=== PATIENT | female | born 1990 | race Caucasian/White ===

== ENCOUNTER → 2016-05-04 | Outpatient (CLI) | payer OTHER ==
--- NOTE | 2016-05-11 16:38 | PATHOLOGY ---
GYNECOLOGIC CYTOLOGY REPORT * * * * * * * INTERPRETATION: NEGATIVE FOR INTRAEPITHELIAL LESION AND MALIGNANCY. CELLULAR CHANGES ASSOCIATED WITH REPAIR ARE PRESENT. Fungal organisms morphologically consistent with Jennifer species are present. SPECIMEN ADEQUACY: Satisfactory for evaluation. No endocervical component is identified. COMMENT(S): This liquid based pap test was screened with the use of an image guided system. RESULTS OF SPECIAL TESTING Test: HPV APTIMA Order Date: 05/05/2016 HPV, OSORIO Screen[[id number]]: Negative (Reference Range = Negative) This test detects fourteen high-risk HPV types (16/18/31/33/35/39/45/51/52/56/58/59/66/68) without differentiation. RESULTED BY: Saige Sanders MT(ASCP) DATE/TIME: 05/09/2016 12:32 RESULTS OF SPECIAL TESTING Test: CT/NG/TV Order Date: 05/06/2016 Chlamydia trachomatis, OSORIO[[id number]]: Negative Neisseria gonorrhoeae, OSORIO[[id number]]: Negative Trichomonas vaginalis, OSORIO[[id number]]: Negative (Reference Range = Negative) CTNG TESTING WAS PERFORMED: A positive result constitutes a reportable case according to [place] State Statute RSMo 192.006 and 192.020 and [place] State Statute K.A.R. 28-1-2 and K.S.A. 65-118. Accordingly, we are asking you as the attending physician to report this case and we shall do likewise in compliance with state statutes. RESULTED BY: Parul Lockhart DATE/TIME: 05/10/2016 15:31 * * * * * * * EXPANDER: STEPHANIE Colon([facility]) PATHOLOGIST: Andrzej Aiken M.D. PAP REPORT ELECTRONICALLY SIGNED BY: Andrzej Aiken M.D. DATE/TIME: 05/11/2016 16:36 SPECIMEN: IGP,CtNgTv ,rfx Apt HPV all path ([id number]) # SLIDES: 1 CLINICAL HISTORY: -LMP/MENSTRUAL: Information not provided -PREVIOUS PAP: Information not provided -BIOPSY: Information not provided -CONTRACEPTIVE: Information not provided -OTHER: Information not provided -ICD-CM: R87.5 Z01.419 INITIAL CPT CODE(S): 39255 971489; 16966 A; 92887 CTNGNTV; 05578, 33646, 29782 Professional services performed by [facility], [address] [place] [address]. Technical services performed by [facility], [address] [place] [address], [address], [place] [address]. The Pap smear is a screening test designed to aid in the detection of premalignant and malignant conditions of the uterine cervix. It is not a diagnostic procedure and should not be used as the sole means of detecting cervical cancer. Both false-positive and false-negative reports do occur. PATIENT: DEANDRE COE /AGE: 709/13/1990 (Age: 25) PATIENT #: [id number] ALT CASE #: SPECIMEN COLLECTION DATE: 05/04/2016 SPECIMEN RECEIVED DATE: 05/05/[address], [address] - [place] [address] - PHONE: [phone] * * * END OF REPORT * * *
== END | disposition home or self-care (01) ==
LOC: SPEC 13:33
PROVIDERS: ATTEND Nurse Practitioner Women's Health
DX: Z01.419 Encounter for gynecological examination (general) (routine) without abnormal findings (principal)
CPT/HCPCS: 88175

== ENCOUNTER → 2017-08-24 | Outpatient (CLI) | payer OTHER | END | disposition home or self-care (01) | LOC: KCIC US 12:18 | DX: Z34.82 Encounter for supervision of other normal pregnancy, second trimester (principal); Z3A.20 20 weeks gestation of pregnancy | CPT/HCPCS: 76805 ==

== ENCOUNTER → 2017-09-25 | Outpatient (CLI) | payer OTHER | END | disposition home or self-care (01) | LOC: KCIC US 08:45 | DX: O26.842 Uterine size-date discrepancy, second trimester (principal); Z3A.26 26 weeks gestation of pregnancy | CPT/HCPCS: 76805 ==

== ENCOUNTER 2018-01-08 19:22 | Inpatient (IN) | payer OTHER ==
[~2018-01-08] VITALS: Ht 167.6 cm; Wt 73.7 kg
[2018-01-08] MEDS ORDERED: OXYTOCIN 30 UNIT/500 ML PREMIX 500 ML IV PRN (19:45)
[2018-01-08] MEDS ORDERED: fentaNYL PF VIAL 100 MCG/2 ML VIAL IV PRN ×2 (19:45)
[2018-01-08] MEDS ORDERED: CITRIC ACID/SODIUM CITRATE 30 ML SOLUTION. PO PRN (19:45)
[2018-01-08] MEDS ORDERED: TERBUTALINE 1 MG/ML VIAL. SQ PRN (19:45)
[2018-01-08] MEDS ORDERED: ONDANSETRON PF 4 MG/2 ML VIAL. IV PRN (19:45)
[2018-01-08] MEDS ORDERED: 0.9 % SODIUM CHLORIDE 10 ML DISP.SYRIN. IV PRN (19:45)
[2018-01-08] MEDS ORDERED: ACETAMINOPHEN 325 MG TABLET. PO PRN (19:45)
[2018-01-08] MEDS ORDERED: diphenhydrAMINE HCL 25 MG CAPSULE PO PRN (19:45)
[2018-01-08] MEDS ORDERED: IBUPROFEN 400 MG TABLET. PO PRN (19:45)
[2018-01-08] MEDS ORDERED: LIDOCAINE 1% PF 30 ML VIAL. INJ PRN (19:45)
[2018-01-08 19:49] VITALS: BP 116/70
[2018-01-08] MEDS ORDERED: DINOPROSTONE 10 MG SUPP.VAG VG ONE (20:00)
[2018-01-08 20:12] LABS: BILIRUBIN,URINE NEGATIVE (NEG); CLARITY,URINE CLEAR; COLOR,URINE YELLOW; NITRITE,URINE NEGATIVE (NEG); PH,URINE 6.5; PROTEIN,URINE NEGATIVE (NEG-TRACE)
[2018-01-08 20:23] LABS: BACTERIA,URINE FEW /HPF (0-FEW); SQUAMOUS EPITHELIAL CELL,UR MOD /LPF
[2018-01-08] MEDS: IV RINGERS,LACTATED 1000ML 1,000 ML IV SCH (20:35)
[2018-01-08 21:01] LABS: BASO % 1 % (0-3); EOS % 1 % (0-3); HEMATOCRIT 32.6 % (36.0-47.0); HEMOGLOBIN 11.7 g/dL (12.0-15.5); LYMPH # 1.4 x10^3/uL (1.0-4.8); LYMPH % 19 % (24-48); MEAN CORPUSCULAR HEMOGLOBIN 34 pg (25-35); MEAN CORPUSCULAR HGB CONC 36 g/dL (31-37); MEAN CORPUSCULAR VOLUME 94 fL (79-100); MONO # 0.6 x10^3/uL (0.0-1.1); MONO % 8 % (0-9); NEUT # 5.4 x10^3uL (1.8-7.7); NEUT % 72 % (31-73); PLATELET COUNT 231 x10^3/uL (140-400); RED BLOOD COUNT 3.45 x10^6/uL (3.50-5.40); RED CELL DISTRIBUTION WIDTH 13.5 % (11.5-14.5); WHITE BLOOD COUNT 7.6 x10^3/uL (4.0-11.0)
[2018-01-09] MEDS ORDERED: OXYTOCIN 30 UNIT/500 ML PREMIX 500 ML IV PRN ×2 (06:00→20:30)
[2018-01-09] MEDS ORDERED: ROPIVacaine 0.2% IN 0.9%NACL PF 40 MG/20 ML DISP.SYRIN. ONE (11:28)
[2018-01-09] MEDS ORDERED: L&D EPIDURAL SYRINGE 50 ML ONE ×3 (11:28→17:56)
[2018-01-09] MEDS ORDERED: LIDOCAINE 1% PF 2 ML VIAL. ONE ×3 (11:36→12:00)
[2018-01-09] MEDS: IV RINGERS,LACTATED 1000ML 1,000 ML IV SCH ×3 (11:39→19:41)
[2018-01-09] MEDS ORDERED: IV RINGERS,LACTATED 1000ML 1,000 ML IV SCH (11:55)
[2018-01-09] MEDS ORDERED: ROPIVacaine 0.2% IN 0.9%NACL PF 40 MG/20 ML DISP.SYRIN. EPID PRN (12:00)
[2018-01-09] MEDS ORDERED: ePHEDrine PF IN SALINE 50 MG/5 ML DISP.SYRIN IV PRN (12:00)
[2018-01-09] MEDS ORDERED: fentaNYL PF VIAL 100 MCG/2 ML VIAL EPI PRN (12:00)
[2018-01-09] MEDS ORDERED: ONDANSETRON PF 4 MG/2 ML VIAL. IV PRN (12:00)
[2018-01-09] MEDS ORDERED: NALOXONE 0.4 MG/ML VIAL. IV PRN (12:00)
--- NOTE | 2018-01-09 12:24 | PDOC1 ---
OB - History Hx of Present Care: Good Care Ultrasounds: Normal mid trimester US Obstetrical Complications: Other (oligohydramnios) Medical Complications: None Past Family/Social History * Past Medical, Surgical, Family and Obstetric Histories reviewed from chart. Rubella: Immune RPR/VDRL: Negative GBS Status: Negative HBsAG: Negative OB - Chief Complaint & HPI Date of Admission: Date of Admission: Jan 08, 2018 at 19:22 Chief Complaint/History : 1 Para: 0 EGA: 40 Reason for admission: induction of labor (oligohydramnios) Indication for induction: other (oligohydramnios) Admission Nurse Assessment Rev: Yes OB - Admission Exam Physical Exam Vitals: VS - Last 72 Hours, by Label Date Time Temp Pulse Resp B/P (MAP) Pulse Ox O2 Delivery O2 Flow Rate FiO2 01/08/18 19:49 98.1 83 18 116/70 (85) Room Air 98.1 HEENT: Normal Heart: Regular Rate Lungs: Crackles Abdomen: Gravid, Non tender, Soft Extremities: Edema Reflexes: Normal Cervical Dilatation: 2cm Effacement: 50% Station: -3 Membranes: Intact Heart Rate: Normal Accelerations: Accelerations Present Decelerations: No decelerations Contractions on Admission: None Text A: 40 wks IUP Oligohydramnios P: Admit for IOl cervidil, then pitocin. ALTAGRACIA FERRER Jr, MD Jan 09, 2018 12:24
[2018-01-09] MEDS ORDERED: L&D EPIDURAL 50 ML SYRINGE. ONE (14:00)
[2018-01-09] MEDS ORDERED: L&D EPIDURAL CASSETTE 100 ML EP PRN (15:00)
--- NOTE | 2018-01-09 20:17 | PDOC ---
VAGINAL DELIVERY DATE DATE: 01/09/18 TIME: 20:15 : 1 Para: 1 EGA: 40 VAGINAL DELIVERY: VTX VACCUM ASSISTED: Yes NUMBER OF PULLS 3 NUMBER OF POP OFFS none MAXIMUM PRESSURE 600 mmgh PLACENTA: Spontaneous 7/9 SEX: Male WEIGHT Weight [ 3920 gm] Nuchal Cord: Yes, Times 1 Amniotic Fluid: Clear PAIN: Epidural EPISIOTOMY: No EXTENSION: Yes (2nd degree mediolateral laceration) REPAIRED WITH 2-0 vicryl EBL 400 ml COMPLICATIONS none CONDITION stable Signs of Intrauterine Infectio: None Shoulder Dystocia: No ALTAGRACIA FERRER Jr, MD Jan 09, 2018 20:17
[2018-01-09] MEDS ORDERED: BENZOCAINE 20% TOPICAL AEROSOL SPRAY 57GM CAN. TP PRN (20:30)
[2018-01-09] MEDS ORDERED: SIMETHICONE 80 MG TAB.CHEW PO PRN (20:30)
[2018-01-09] MEDS ORDERED: MAG HYDROX/ALUMINUM HYD/SIMETH 30 ML ORAL.SUSP PO PRN (20:30)
[2018-01-09] MEDS ORDERED: MAGNESIUM HYDROXIDE 2,400 MG/30 ML ORAL.SUSP. PO PRN (20:30)
[2018-01-09] MEDS ORDERED: 0.9 % SODIUM CHLORIDE 10 ML DISP.SYRIN. IV PRN (20:30)
[2018-01-09] MEDS ORDERED: diphenhydrAMINE HCL 25 MG CAPSULE PO PRN (20:30)
[2018-01-09] MEDS ORDERED: HYDROCORTISONE 1% TOPICAL OINTMENT 30GM TUBE. TP PRN (20:30)
[2018-01-09] MEDS ORDERED: ZOLPIDEM 5 MG TABLET. PO PRN (20:30)
[2018-01-09] MEDS ORDERED: MMR per PROTOCOL. MC PRN (20:30)
[2018-01-09] MEDS ORDERED: ACETAMINOPHEN 325 MG TABLET. PO PRN (20:30)
[2018-01-09] MEDS: IBUPROFEN 400 MG TABLET. PO PRN (22:42)
[2018-01-09 22:50] VITALS: BP 106/67
[2018-01-09] MEDS: PHENYLEPH/MINERAL OIL/PETROLAT RECTAL OINTMENT 28GM TUBE. RC PRN (23:59)
[2018-01-10] MEDS: IV RINGERS,LACTATED 1000ML 1,000 ML IV SCH ×3 (03:41→19:41)
[2018-01-10 04:44] LABS: BASO % 0 % (0-3); EOS % 0 % (0-3); HEMATOCRIT 29.3 % (36.0-47.0); HEMOGLOBIN 10.1 g/dL (12.0-15.5); LYMPH # 1.3 x10^3/uL (1.0-4.8); LYMPH % 10 % (24-48); MEAN CORPUSCULAR HEMOGLOBIN 33 pg (25-35); MEAN CORPUSCULAR HGB CONC 35 g/dL (31-37); MEAN CORPUSCULAR VOLUME 95 fL (79-100); MONO # 1.2 x10^3/uL (0.0-1.1); MONO % 9 % (0-9); NEUT # 10.8 x10^3uL (1.8-7.7); NEUT % 81 % (31-73); PLATELET COUNT 189 x10^3/uL (140-400); RED CELL DISTRIBUTION WIDTH 13.9 % (11.5-14.5); WHITE BLOOD COUNT 13.4 x10^3/uL (4.0-11.0)
[2018-01-10 05:04] VITALS: BP 94/57
[2018-01-10] MEDS: IBUPROFEN 400 MG TABLET. PO PRN ×2 (07:40→15:40)
--- NOTE | 2018-01-10 08:27 | PDOC ---
OB Progress Note Date of Service 01/10/18 Time of Evaluation 0825 Notes Pt. feeling well. No complaints. Lab Laboratory Tests Test 01/08/18 19:30 01/08/18 20:20 01/10/18 04:20 Urine Collection Type Unknown Urine Color Yellow Urine Clarity Clear Urine pH 6.5 Urine Specific [place] 1.020 Urine Protein Negative mg/dL (NEG-TRACE) Urine Glucose (UA) Negative mg/dL (NEG) Urine Ketones (Stick) Negative mg/dL (NEG) Urine Blood Negative (NEG) Urine Nitrite Negative (NEG) Urine Bilirubin Negative (NEG) Urine Urobilinogen Dipstick 1.0 mg/dL (0.2 mg/dL) Urine Leukocyte Esterase Negative (NEG) Urine RBC 1-2 /HPF (0-2) Urine WBC 1-4 /HPF (0-4) Urine Squamous Epithelial Cells Mod /LPF Urine Bacteria Few /HPF (0-FEW) Urine Mucus Slight /LPF White Blood Count 7.6 x10^3/uL (4.0-11.0) 13.4 x10^3/uL (4.0-11.0) Red Blood Count 3.45 x10^6/uL (3.50-5.40) 3.10 x10^6/uL (3.50-5.40) Hemoglobin 11.7 g/dL (12.0-15.5) 10.1 g/dL (12.0-15.5) Hematocrit 32.6 % (36.0-47.0) 29.3 % (36.0-47.0) Mean Corpuscular Volume 94 fL (79-100) 95 fL (79-100) Mean Corpuscular Hemoglobin 34 pg (25-35) 33 pg (25-35) Mean Corpuscular Hemoglobin Concent 36 g/dL (31-37) 35 g/dL (31-37) Red Cell Distribution Width 13.5 % (11.5-14.5) 13.9 % (11.5-14.5) Platelet Count 231 x10^3/uL (140-400) 189 x10^3/uL (140-400) Neutrophils (%) (Auto) 72 % (31-73) 81 % (31-73) Lymphocytes (%) (Auto) 19 % (24-48) 10 % (24-48) Monocytes (%) (Auto) 8 % (0-9) 9 % (0-9) Eosinophils (%) (Auto) 1 % (0-3) 0 % (0-3) Basophils (%) (Auto) 1 % (0-3) 0 % (0-3) Neutrophils # (Auto) 5.4 x10^3uL (1.8-7.7) 10.8 x10^3uL (1.8-7.7) Lymphocytes # (Auto) 1.4 x10^3/uL (1.0-4.8) 1.3 x10^3/uL (1.0-4.8) Monocytes # (Auto) 0.6 x10^3/uL (0.0-1.1) 1.2 x10^3/uL (0.0-1.1) Eosinophils # (Auto) 0.0 x10^3/uL (0.0-0.7) 0.0 x10^3/uL (0.0-0.7) Basophils # (Auto) 0.0 x10^3/uL (0.0-0.2) 0.0 x10^3/uL (0.0-0.2) Treponema pallidum Antibody Nonreactive (Nonreactive) Hepatitis B Surface Antigen Nonreactive (Nonreactive) Laboratory Tests Test 01/10/18 04:20 White Blood Count 13.4 x10^3/uL (4.0-11.0) Red Blood Count 3.10 x10^6/uL (3.50-5.40) Hemoglobin 10.1 g/dL (12.0-15.5) Hematocrit 29.3 % (36.0-47.0) Mean Corpuscular Volume 95 fL (79-100) Mean Corpuscular Hemoglobin 33 pg (25-35) Mean Corpuscular Hemoglobin Concent 35 g/dL (31-37) Red Cell Distribution Width 13.9 % (11.5-14.5) Platelet Count 189 x10^3/uL (140-400) Neutrophils (%) (Auto) 81 % (31-73) Lymphocytes (%) (Auto) 10 % (24-48) Monocytes (%) (Auto) 9 % (0-9) Eosinophils (%) (Auto) 0 % (0-3) Basophils (%) (Auto) 0 % (0-3) Neutrophils # (Auto) 10.8 x10^3uL (1.8-7.7) Lymphocytes # (Auto) 1.3 x10^3/uL (1.0-4.8) Monocytes # (Auto) 1.2 x10^3/uL (0.0-1.1) Eosinophils # (Auto) 0.0 x10^3/uL (0.0-0.7) Basophils # (Auto) 0.0 x10^3/uL (0.0-0.2) Medications Current Medications Sodium Chloride (Normal Saline Flush) 3 ml QSHIFT PRN IV AFTER MEDS AND BLOOD DRAWS Last administered on 01/08/18at 20:34; Start 01/08/18 at 19:45 Ringer's Solution 1,000 ml @ 125 mls/hr Q8H IV Last administered on 01/09/18at 11:39; Start 01/08/18 at 19:41 Fentanyl Citrate (Fentanyl 2ml Vial) 50 mcg PRN Q30MIN PRN IV Mild to moderate pain; Start 01/08/18 at 19:45 Fentanyl Citrate (Fentanyl 2ml Vial) 100 mcg PRN Q30MIN PRN IV Severe pain; Start 01/08/18 at 19:45 Acetaminophen (Tylenol) 650 mg PRN Q6HRS PRN PO MILD PAIN / TEMP; Start at 19:45 Ondansetron HCl (Zofran) 4 mg PRN Q4HRS PRN IV NAUSEA/VOMITING; Start 01/08/18 at 19:45 Citric Acid/ Sodium Citrate (Bicitra) 30 ml 1X PRN PRN PO DYSPEPSIA; Start 01/08/18 at 19:45; Stop 01/09/18 at 19:44; Status DC Terbutaline Sulfate (Brethine) 0.25 mg 1X PRN PRN SQ SEE COMMENTS; Start at 19:45; Stop 01/09/18 at 19:44; Status DC Lidocaine HCl (Xylocaine 1% Pf 30ml Vial) 30 ml 1X PRN PRN INJ SEE COMMENTS; Start 01/08/18 at 19:45; Stop 01/10/18 at 19:44 Oxytocin/Sodium Chloride 500 ml @ 0 mls/hr CONT PRN IV SEE I/O RECORD Last administered on 01/09/18at 06:17; Start 01/09/18 at 06:00 Oxytocin/Sodium Chloride 500 ml @ 0 mls/hr CONT PRN PRN IV Post delivery bleeding; Start 01/08/18 at 19:45 Ibuprofen (Motrin) 800 mg PRN Q6HRS PRN PO MODERATE POST DELIVERY PAIN; Start 01/08/18 at 19:45; Status Cancel Dinoprostone (Cervidil) 10 mg 1X ONCE VG Last administered on 01/08/18at 20:33 ; Start 01/08/18 at 20:00; Stop 01/08/18 at 20:01; Status DC Diphenhydramine HCl (Benadryl) 25 mg PRN QHS PRN PO INSOMNIA; Start 01/08/18 at 19:45 Ropivacaine/ Sodium Chloride (ROPIVacaine 0.2% - 0.9%NACL PF) 40 mg STK-MED ONCE .ROUTE ; Start 01/09/18 at 11:28; Stop 01/09/18 at 11:29; Status DC Ropivacaine/ Fentanyl/NS 50 ml @ As Directed STK-MED ONCE .ROUTE ; Start at 11:28; Stop 01/09/18 at 11:29; Status DC Lidocaine HCl (Xylocaine-Mpf 1% 2ml Vial) 2 ml STK-MED ONCE .ROUTE ; Start 01/09 at 11:36; Stop 01/09/18 at 11:37; Status DC Lidocaine HCl (Xylocaine-Mpf 1% 2ml Vial) 2 ml STK-MED ONCE .ROUTE ; Start 01/09 at 11:36; Stop 01/09/18 at 11:37; Status DC Ringer's Solution 1,000 ml @ 1,000 mls/hr Q1H IV ; Start 01/09/18 at 11:55; Stop 01/09/18 at 12:54; Status DC Ephedrine Sulfate (ePHEDrine PF IN SALINE SYRINGE) 10 mg PRN Q2MIN PRN IV IF SBP<90; Start 01/09/18 at 12:00 Naloxone HCl (Narcan) 0.4 mg PRN Q1MIN PRN IV SEE COMMENTS; Start 01/09/18 at 12:00 Fentanyl Citrate (Fentanyl 2ml Vial) 100 mcg PRN 1X PRN EPI FOR ANESTHESIA; Start 01/09/18 at 12:00; Stop 01/10/18 at 11:59 Ondansetron HCl (Zofran) 4 mg PRN Q6HRS PRN IV NAUSEA/VOMITING; Start 01/09/18 at 12:00; Status UNV Ropivacaine/ Sodium Chloride (ROPIVacaine 0.2% - 0.9%NACL PF) 40 mg PRN 1X PRN EPID SEE COMMENTS Last administered on 01/09/18at 12:00; Start 01/09/18 at 12:00 ; Stop 01/09/18 at 12:02; Status DC Ropivacaine/ Fentanyl/NS 100 ml @ 0 mls/hr CONT PRN EP PAIN; Start 01/09/18 at 15:00 Ropivacaine/ Fentanyl/NS 50 ml @ As Directed STK-MED ONCE .ROUTE ; Start at 15:12; Stop 01/09/18 at 15:13; Status DC Ropivacaine/ Fentanyl/NS 50 ml @ As Directed STK-MED ONCE .ROUTE ; Start at 17:56; Stop 01/09/18 at 17:57; Status DC Sodium Chloride (Normal Saline Flush) 10 ml QSHIFT PRN IV AFTER MEDS AND BLOOD DRAWS; Start 01/09/18 at 20:30 Oxytocin/Sodium Chloride 500 ml @ 62.5 mls/hr CONT PRN IV SEE I/O RECORD; Start 01/09/18 at 20:30; Stop 01/10/18 at 04:30; Status DC Acetaminophen (Tylenol) 650 mg PRN Q6HRS PRN PO MILD PAIN / TEMP; Start at 20:30; Status UNV Ibuprofen (Motrin) 800 mg PRN Q8HRS PRN PO INFLAMMATION/PAIN PREVENTION Last administered on 01/10/18at 07:40; Start 01/09/18 at 20:30 Docusate Sodium (Colace) 100 mg PRN BID PRN PO CONSTIPATION; Start 01/09/18 at 20:30 Magnesium Hydroxide (Milk Of Magnesia) 2,400 mg PRN DAILY PRN PO CONSTIPATION 2nd Choice; Start 01/09/18 at 20:30 Al Hydroxide/Mg Hydroxide (Mylanta Plus Xs) 30 ml PRN Q4HRS PRN PO HEARTBURN / GAS; Start 01/09/18 at 20:30 Simethicone (Gas-X) 80 mg PRN AFTMEALHC PRN PO GAS / BLOATING; Start 01/09/18 at 20:30 Diphenhydramine HCl (Benadryl) 25 mg PRN Q6HRS PRN PO ITCHING; Start 01/09/18 at 20:30 Benzocaine (Americaine) 1 spray PRN QID PRN TP TOPICAL PAIN Last administered on 01/09/18at 22:41; Start 01/09/18 at 20:30 Phenyleph/Shark Oil/Min Oil/Petrol (Preparation H) 1 martha PRN QID PRN RC RECTAL PAIN Last administered on 01/09/18at 23:59; Start 01/09/18 at 20:30 Hydrocortisone (Cortaid) 1 martha PRN QID PRN TP PERINEAL PAIN; Start 01/09/18 at 20:30 Ferrous Sulfate (Feosol) 325 mg BIDWMEALS PO ; Start 01/10/18 at 08:00 Zolpidem Tartrate (Ambien) 5 mg PRN QHS PRN PO INSOMNIA, MAY REPEAT X1; Start 01/09/18 at 20:30 Info (Do NOT chart on this placeholder) 1 ea 1X PRN PRN MC SEE COMMENTS; Start 01/09/18 at 20:30; Stop 01/10/18 at 00:46; Status DC Info (Do NOT chart on this placeholder) 1 ea 1X PRN PRN MC SEE COMMENTS; Start 01/09/18 at 20:30 Oxycodone/ Acetaminophen (Percocet 5/325) 2 tab PRN Q4HRS PRN PO MODERATE PAIN , SEVERE PAIN; Start 01/09/18 at 20:30 Diphtheria/ Tetanus/Acell Pertussis (Boostrix) 0.5 ml ONCE ONCE VAX IM ; Start 01/10/18 at 09:00; Stop 01/10/18 at 09:01 Exam Abd: soft, non tender, fundus firm Assessment PPD#1 s/p Plan of Care: Continue current Tx, Mgmt ALTAGRACIA FERRER Jr, MD Jan 10, 2018 08:27
[2018-01-10] MEDS: DOCUSATE SODIUM 100 MG CAPSULE. PO PRN ×2 (08:36→20:09)
[2018-01-10] MEDS: FERROUS SULFATE 325 MG TABLET. PO SCH ×2 (08:36→20:09)
[2018-01-10] MEDS ORDERED: DIPHTH,PERTUSS(ACELL),TET TOX 0.5 ML DISP.SYRIN. VAX IM ONE (09:00)
[2018-01-10 10:00] VITALS: BP 104/66
[2018-01-10 13:30] VITALS: BP 116/79
[2018-01-10] MEDS: oxyCODONE/APAP 5/325 1 TAB TABLET PO PRN ×2 (14:26→20:10)
[2018-01-10 18:10] VITALS: BP 107/69
[2018-01-10 22:18] VITALS: BP 106/69
[2018-01-11] MEDS: IV RINGERS,LACTATED 1000ML 1,000 ML IV SCH ×2 (03:41→07:30)
[2018-01-11 05:44] VITALS: BP 116/85
[2018-01-11] MEDS: IBUPROFEN 400 MG TABLET. PO PRN (08:32)
[2018-01-11] MEDS: PHENYLEPH/MINERAL OIL/PETROLAT RECTAL OINTMENT 28GM TUBE. RC PRN (08:33)
[2018-01-11] MEDS: FERROUS SULFATE 325 MG TABLET. PO SCH (08:33)
--- NOTE | 2018-01-11 10:45 | PDOC3 ---
OB DISCHARGE SUMMARY DATE OF ADMISSION: 01/09/18 DATE OF DISCHARGE: 01/11/18 REASON FOR ADMISSION: Induction of labor PROCEDURES: Ultrasound INTRAPARTUM PROCEDURES: Spontanous Vag Deliv, Perineal Laceration PROCEDURES: None OPERATIONS: None DISCHARGE DIAGNOSIS: Term Delivered DISCHARGE INFORMATION: Activity, Diet HOSPITAL COURSE Unremarkable CONDITION AT DISCHARGE Stable ANA LAURA PADRON MD Jan 11, 2018 10:45
[2018-01-11] MEDS ORDERED: HYDR-971 PO (10:48)
[2018-01-11] MEDS ORDERED: NAPR-514 PO (10:48)
[2018-01-11] MEDS ORDERED: HYDR30CR61 TP (10:49)
[2018-01-11] MEDS ORDERED: HYDR25SU18 RC (10:49)
[2018-01-11 12:00] VITALS: BP 113/76
== END 2018-01-11 12:30 | disposition home or self-care (01) | DRG 806 ==
LOC: 3 SO LND 19:22
PROVIDERS: ADMIT Obstetrics & Gynecology; ATTEND Obstetrics & Gynecology
PROC: 10D07Z6 Extraction of Products of Conception, Vacuum, Via Natural or Artificial Opening (ICD-10-PCS; principal; 2018-01-08)
PROC: 0KQM0ZZ Repair Perineum Muscle, Open Approach (ICD-10-PCS; 2018-01-08)
PROC: 3E0R3BZ Introduction of Anesthetic Agent into Spinal Canal, Percutaneous Approach (ICD-10-PCS; 2018-01-08)
PROC: 00HU33Z Insertion of Infusion Device into Spinal Canal, Percutaneous Approach (ICD-10-PCS; 2018-01-08)
PROC: 3E0P7VZ Introduction of Hormone into Female Reproductive, Via Natural or Artificial Opening (ICD-10-PCS; 2018-01-08)
DX: O69.81X0 Labor and delivery complicated by cord around neck, without compression, not applicable or unspecified (principal); O41.03X0 Oligohydramnios, third trimester, not applicable or unspecified; Z37.0 Single live birth; Z3A.40 40 weeks gestation of pregnancy; O70.1 Second degree perineal laceration during delivery
CPT/HCPCS: 36415; 81001; 85025; 86592; 86850; 86900; 86901; 87340; 90715; J2590; J2795; J7120

== ENCOUNTER 2018-08-14 07:30 | Day surgery (SDC) | payer OTHER ==
[~2018-08-14] VITALS: Ht 167.6 cm; Wt 56.6 kg
--- NOTE | 2018-08-14 06:29 | HP ---
ADMIT DATE: HISTORY OF PRESENT ILLNESS: The patient is doing relatively well and had a child 6 months old and during the and childbirth, had hemorrhoids. Now, she had hemorrhoid posteriorly that gives her difficulty, is irritating and is very distressful to her and she wishes to have this removed. PAST MEDICAL HISTORY: Shows normal childhood diseases. MEDICATIONS: She has no medicine that she is taking anything for. She does take some Zoloft for depression at times. SOCIAL HISTORY: Otherwise, she drinks only socially, not enough to get inebriated. Does not smoke or use illicit drugs. ALLERGIES: She has no allergies. FAMILY HISTORY: Noncontributory. REVIEW OF SYSTEMS: All negative except for the anal pain associated with the external hemorrhoid. PHYSICAL EXAMINATION: GENERAL: Shows an alert female in no acute distress. HEAD, EARS, EYES, NOSE AND THROAT: Grossly normal. CHEST: Clear bilaterally to auscultation. HEART: Rate was 68 beats per minute and was regular. No murmurs are noted. There were no thrills, heaves or friction rub. BREASTS: Not examined. EXTREMITIES: Grossly normal. RECTAL: Examination of the anus shows a posterior mass, which was minimally tender, not inflamed and there was no evidence of thrombosis at this point. IMPRESSION: External hemorrhoid. NIKKI KELLY MD DR: HUMA/nts JOB#: [id number] / [id number]
[~2018-08-14 07:30] MED LIST: HYDR-3164 PO; HYDR25SU18 RC; HYDR30CR61 TP; HYDROmorphone 2 MG/ML VIAL IV PRN; IV RINGERS,LACTATED 1000ML 1,000 ML IV SCH; MORPHINE SULFATE 2 MG/ML VIAL. IV PRN; NAPR-514 PO; ONDANSETRON PF 4 MG/2 ML VIAL. IV PRN; PREN1TAB58 PO; PROCHLORPERAZINE 10 MG/2 ML VIAL. IV PRN; SERT25TA PO; fentaNYL PF VIAL 100 MCG/2 ML VIAL IV PRN
[2018-08-14] MEDS ORDERED: BUPIVAC MPF-EPI 0.5%-1:200000 30 ML VIAL. ONE (07:50)
[2018-08-14] MEDS ORDERED: GELATIN SPONGE SIZE 4 SPONGE. ONE (07:50)
[2018-08-14 08:07] LABS: BASO # 0.1 x10^3/uL (0.0-0.2); BASO % 1 % (0-3); EOS # 0.2 x10^3/uL (0.0-0.7); EOS % 4 % (0-3); HEMATOCRIT 39.6 % (36.0-47.0); HEMOGLOBIN 13.3 g/dL (12.0-15.5); LYMPH # 1.8 x10^3/uL (1.0-4.8); LYMPH % 33 % (24-48); MEAN CORPUSCULAR HEMOGLOBIN 32 pg (25-35); MEAN CORPUSCULAR HGB CONC 34 g/dL (31-37); MEAN CORPUSCULAR VOLUME 95 fL (79-100); MONO # 0.6 x10^3/uL (0.0-1.1); MONO % 11 % (0-9); NEUT # 2.9 x10^3uL (1.8-7.7); NEUT % 52 % (31-73); PLATELET COUNT 278 x10^3/uL (140-400); RED BLOOD COUNT 4.18 x10^6/uL (3.50-5.40); RED CELL DISTRIBUTION WIDTH 14.1 % (11.5-14.5); WHITE BLOOD COUNT 5.5 x10^3/uL (4.0-11.0)
[2018-08-14 08:14] LABS: U PREG PATIENT NEGATIVE (NEG)
[2018-08-14 08:15] LABS: PROTHROMBIN TIME PATIENT 13.4 SEC (11.7-14.0)
[2018-08-14 08:20] LABS: CALCIUM 9.1 mg/dL (8.5-10.1); CREATININE 0.6 mg/dL (0.6-1.0); GFR 118.2; POTASSIUM 4.1 mmol/L (3.5-5.1)
[2018-08-14 08:28] LABS: ALBUMIN/GLOBULIN RATIO 1.3 (1.0-1.7); TOTAL BILIRUBIN 0.3 mg/dL (0.2-1.0); TOTAL PROTEIN 7.2 g/dL (6.4-8.2)
[2018-08-14] MEDS ORDERED: fentaNYL PF VIAL 100 MCG/2 ML VIAL ONE (08:53)
[2018-08-14] MEDS ORDERED: LIDOCAINE 2% PF 5 ML VIAL. ONE (08:54)
[2018-08-14] MEDS ORDERED: PROPOFOL 20 ML IV ONE (08:54)
[2018-08-14] MEDS ORDERED: DEXAMETHASONE SOD PHOS 4 MG/ML VIAL ONE ×2 (08:54)
[2018-08-14] MEDS ORDERED: KETOROLAC 30 MG/ML INJ FOR OR. INJ ONE (08:54)
[2018-08-14] MEDS ORDERED: SEVOFLURANE 31 TO 60 MINUTES. IH ONE (08:54)
[2018-08-14] MEDS ORDERED: ONDANSETRON PF 4 MG/2 ML VIAL. ONE (08:54)
[2018-08-14] MEDS ORDERED: MIDAZOLAM HCL/PF 2 MG/2 ML VIAL. ONE (08:55)
--- NOTE | 2018-08-14 09:18 | PDOC ---
SURGICAL PROGRESS NOTE Subjective nO CHANGE IN DICTATED h&p. Vital Signs Vital Signs Date Time Temp Pulse Resp B/P (MAP) Pulse Ox O2 Delivery O2 Flow Rate FiO2 08/14/18 07:54 97.2 72 20 113/73 97 97.2 Labs Laboratory Tests Test 08/14/18 07:40 08/14/18 07:58 Urine Test Negative (NEG) White Blood Count 5.5 x10^3/uL (4.0-11.0) Red Blood Count 4.18 x10^6/uL (3.50-5.40) Hemoglobin 13.3 g/dL (12.0-15.5) Hematocrit 39.6 % (36.0-47.0) Mean Corpuscular Volume 95 fL (79-100) Mean Corpuscular Hemoglobin 32 pg (25-35) Mean Corpuscular Hemoglobin Concent 34 g/dL (31-37) Red Cell Distribution Width 14.1 % (11.5-14.5) Platelet Count 278 x10^3/uL (140-400) Neutrophils (%) (Auto) 52 % (31-73) Lymphocytes (%) (Auto) 33 % (24-48) Monocytes (%) (Auto) 11 % (0-9) Eosinophils (%) (Auto) 4 % (0-3) Basophils (%) (Auto) 1 % (0-3) Neutrophils # (Auto) 2.9 x10^3uL (1.8-7.7) Lymphocytes # (Auto) 1.8 x10^3/uL (1.0-4.8) Monocytes # (Auto) 0.6 x10^3/uL (0.0-1.1) Eosinophils # (Auto) 0.2 x10^3/uL (0.0-0.7) Basophils # (Auto) 0.1 x10^3/uL (0.0-0.2) Prothrombin Time 13.4 SEC (11.7-14.0) Prothromb Time International Ratio 1.1 (0.8-1.1) Sodium Level 139 mmol/L (136-145) Potassium Level 4.1 mmol/L (3.5-5.1) Chloride Level 104 mmol/L (98-107) Carbon Dioxide Level 24 mmol/L (21-32) Anion Gap 11 (6-14) Blood Urea Nitrogen 15 mg/dL (7-20) Creatinine 0.6 mg/dL (0.6-1.0) Estimated GFR (Cockcroft-Gault) 118.2 BUN/Creatinine Ratio 25 (6-20) Glucose Level 96 mg/dL (70-99) Calcium Level 9.1 mg/dL (8.5-10.1) Total Bilirubin 0.3 mg/dL (0.2-1.0) Aspartate Amino Transf (AST/SGOT) 12 U/L (15-37) Alanine Aminotransferase (ALT/SGPT) 23 U/L (14-59) Alkaline Phosphatase 73 U/L (46-116) Total Protein 7.2 g/dL (6.4-8.2) Albumin 4.0 g/dL (3.4-5.0) Albumin/Globulin Ratio 1.3 (1.0-1.7) Laboratory Tests Test 08/14/18 07:40 08/14/18 07:58 Urine Test Negative (NEG) White Blood Count 5.5 x10^3/uL (4.0-11.0) Red Blood Count 4.18 x10^6/uL (3.50-5.40) Hemoglobin 13.3 g/dL (12.0-15.5) Hematocrit 39.6 % (36.0-47.0) Mean Corpuscular Volume 95 fL (79-100) Mean Corpuscular Hemoglobin 32 pg (25-35) Mean Corpuscular Hemoglobin Concent 34 g/dL (31-37) Red Cell Distribution Width 14.1 % (11.5-14.5) Platelet Count 278 x10^3/uL (140-400) Neutrophils (%) (Auto) 52 % (31-73) Lymphocytes (%) (Auto) 33 % (24-48) Monocytes (%) (Auto) 11 % (0-9) Eosinophils (%) (Auto) 4 % (0-3) Basophils (%) (Auto) 1 % (0-3) Neutrophils # (Auto) 2.9 x10^3uL (1.8-7.7) Lymphocytes # (Auto) 1.8 x10^3/uL (1.0-4.8) Monocytes # (Auto) 0.6 x10^3/uL (0.0-1.1) Eosinophils # (Auto) 0.2 x10^3/uL (0.0-0.7) Basophils # (Auto) 0.1 x10^3/uL (0.0-0.2) Prothrombin Time 13.4 SEC (11.7-14.0) Prothromb Time International Ratio 1.1 (0.8-1.1) Sodium Level 139 mmol/L (136-145) Potassium Level 4.1 mmol/L (3.5-5.1) Chloride Level 104 mmol/L (98-107) Carbon Dioxide Level 24 mmol/L (21-32) Anion Gap 11 (6-14) Blood Urea Nitrogen 15 mg/dL (7-20) Creatinine 0.6 mg/dL (0.6-1.0) Estimated GFR (Cockcroft-Gault) 118.2 BUN/Creatinine Ratio 25 (6-20) Glucose Level 96 mg/dL (70-99) Calcium Level 9.1 mg/dL (8.5-10.1) Total Bilirubin 0.3 mg/dL (0.2-1.0) Aspartate Amino Transf (AST/SGOT) 12 U/L (15-37) Alanine Aminotransferase (ALT/SGPT) 23 U/L (14-59) Alkaline Phosphatase 73 U/L (46-116) Total Protein 7.2 g/dL (6.4-8.2) Albumin 4.0 g/dL (3.4-5.0) Albumin/Globulin Ratio 1.3 (1.0-1.7) NIKKI KELLY MD Aug 14, 2018 09:18
--- NOTE | 2018-08-14 09:21 | PDOC ---
SURGICAL PROGRESS NOTE Subjective Op0 Note: surgeon...................................See Pre and pot op diag..................external hemorrhoids. Anesthesia..............................general Procedure...............................exc hemorrhoid Drains....................................none Blood loss..............................10cc Fluids.....................................see anesthesia sheet Condition................................satisfactory Vital Signs Vital Signs Date Time Temp Pulse Resp B/P (MAP) Pulse Ox O2 Delivery O2 Flow Rate FiO2 08/14/18 07:54 97.2 72 20 113/73 97 97.2 Labs Laboratory Tests Test 08/14/18 07:40 08/14/18 07:58 Urine Test Negative (NEG) White Blood Count 5.5 x10^3/uL (4.0-11.0) Red Blood Count 4.18 x10^6/uL (3.50-5.40) Hemoglobin 13.3 g/dL (12.0-15.5) Hematocrit 39.6 % (36.0-47.0) Mean Corpuscular Volume 95 fL (79-100) Mean Corpuscular Hemoglobin 32 pg (25-35) Mean Corpuscular Hemoglobin Concent 34 g/dL (31-37) Red Cell Distribution Width 14.1 % (11.5-14.5) Platelet Count 278 x10^3/uL (140-400) Neutrophils (%) (Auto) 52 % (31-73) Lymphocytes (%) (Auto) 33 % (24-48) Monocytes (%) (Auto) 11 % (0-9) Eosinophils (%) (Auto) 4 % (0-3) Basophils (%) (Auto) 1 % (0-3) Neutrophils # (Auto) 2.9 x10^3uL (1.8-7.7) Lymphocytes # (Auto) 1.8 x10^3/uL (1.0-4.8) Monocytes # (Auto) 0.6 x10^3/uL (0.0-1.1) Eosinophils # (Auto) 0.2 x10^3/uL (0.0-0.7) Basophils # (Auto) 0.1 x10^3/uL (0.0-0.2) Prothrombin Time 13.4 SEC (11.7-14.0) Prothromb Time International Ratio 1.1 (0.8-1.1) Sodium Level 139 mmol/L (136-145) Potassium Level 4.1 mmol/L (3.5-5.1) Chloride Level 104 mmol/L (98-107) Carbon Dioxide Level 24 mmol/L (21-32) Anion Gap 11 (6-14) Blood Urea Nitrogen 15 mg/dL (7-20) Creatinine 0.6 mg/dL (0.6-1.0) Estimated GFR (Cockcroft-Gault) 118.2 BUN/Creatinine Ratio 25 (6-20) Glucose Level 96 mg/dL (70-99) Calcium Level 9.1 mg/dL (8.5-10.1) Total Bilirubin 0.3 mg/dL (0.2-1.0) Aspartate Amino Transf (AST/SGOT) 12 U/L (15-37) Alanine Aminotransferase (ALT/SGPT) 23 U/L (14-59) Alkaline Phosphatase 73 U/L (46-116) Total Protein 7.2 g/dL (6.4-8.2) Albumin 4.0 g/dL (3.4-5.0) Albumin/Globulin Ratio 1.3 (1.0-1.7) Laboratory Tests Test 08/14/18 07:40 08/14/18 07:58 Urine Test Negative (NEG) White Blood Count 5.5 x10^3/uL (4.0-11.0) Red Blood Count 4.18 x10^6/uL (3.50-5.40) Hemoglobin 13.3 g/dL (12.0-15.5) Hematocrit 39.6 % (36.0-47.0) Mean Corpuscular Volume 95 fL (79-100) Mean Corpuscular Hemoglobin 32 pg (25-35) Mean Corpuscular Hemoglobin Concent 34 g/dL (31-37) Red Cell Distribution Width 14.1 % (11.5-14.5) Platelet Count 278 x10^3/uL (140-400) Neutrophils (%) (Auto) 52 % (31-73) Lymphocytes (%) (Auto) 33 % (24-48) Monocytes (%) (Auto) 11 % (0-9) Eosinophils (%) (Auto) 4 % (0-3) Basophils (%) (Auto) 1 % (0-3) Neutrophils # (Auto) 2.9 x10^3uL (1.8-7.7) Lymphocytes # (Auto) 1.8 x10^3/uL (1.0-4.8) Monocytes # (Auto) 0.6 x10^3/uL (0.0-1.1) Eosinophils # (Auto) 0.2 x10^3/uL (0.0-0.7) Basophils # (Auto) 0.1 x10^3/uL (0.0-0.2) Prothrombin Time 13.4 SEC (11.7-14.0) Prothromb Time International Ratio 1.1 (0.8-1.1) Sodium Level 139 mmol/L (136-145) Potassium Level 4.1 mmol/L (3.5-5.1) Chloride Level 104 mmol/L (98-107) Carbon Dioxide Level 24 mmol/L (21-32) Anion Gap 11 (6-14) Blood Urea Nitrogen 15 mg/dL (7-20) Creatinine 0.6 mg/dL (0.6-1.0) Estimated GFR (Cockcroft-Gault) 118.2 BUN/Creatinine Ratio 25 (6-20) Glucose Level 96 mg/dL (70-99) Calcium Level 9.1 mg/dL (8.5-10.1) Total Bilirubin 0.3 mg/dL (0.2-1.0) Aspartate Amino Transf (AST/SGOT) 12 U/L (15-37) Alanine Aminotransferase (ALT/SGPT) 23 U/L (14-59) Alkaline Phosphatase 73 U/L (46-116) Total Protein 7.2 g/dL (6.4-8.2) Albumin 4.0 g/dL (3.4-5.0) Albumin/Globulin Ratio 1.3 (1.0-1.7) NIKKI KELLY MD Aug 14, 2018 09:21
[2018-08-14 11:06] VITALS: BP 108/62
--- NOTE | 2018-08-15 08:28 | OP ---
DATE OF SURGERY: SURGEON: Simeon Kelly MD PREOPERATIVE DIAGNOSIS: Hemorrhoid. POSTOPERATIVE DIAGNOSIS: Hemorrhoid. ANESTHESIA: General. PROCEDURE: Hemorrhoidectomy. TECHNIQUE: Under general anesthesia, the patient was properly prepped and draped in routine position and placed in the lithotomy position for the surgery. The hemorrhoid was at the anterior portion of the anus, apparently it was found after she had been . Given her problems and therefore, she wanted to have it removed. As such, the area was prepped and draped in routine fashion and draped. The hemorrhoid been mostly external was seen. We made an incision with the 15 blade around it and it went up all around it. We then used 4-0 Vicryl to tie it off high and then slowly shelled it out of its base using Metzenbaum scissors. The resultant defect was approximated using #4-0 Vicryl in subcuticular fashion. The procedure was now terminated as 0.5% Marcaine with epinephrine was injected. The lesion lay mostly transverse. The procedure was now terminated and sterile dressings were applied. The blood loss was probably 5-10 mL. FLUIDS GIVEN: Can be obtained from the anesthesia sheet. DRAINS: No drains were used. CONDITION OF THE PATIENT: Satisfactory as she returned to the recovery room. SIMEON KELLY MD DR: HUMA/nts JOB#: [id number] / [id number]
--- NOTE | 2018-08-15 20:05 | PATHOLOGY ---
[facility] Accession Number: [id number] . 01 Material submitted: . hemorrhoids - HEMORRHOID . 01 Clinician provided ICD-10: K64.9 . 02 Diagnosis: Segment of skin, hemorrhoidectomy: - Fibroepithelial polyp showing focal congestion and recent hemorrhage. (JPM:audit director; 08/15/2018) MBR/08/15/2018 . 02 Comment: There is no evidence of malignancy. (JPM:analilia; 08/15/2018) . 02 Electronically signed: . Kieran Chu MD, Pathologist NPI- [id number] . 01 Gross description: . The specimen is received in formalin, labeled "Wonka, Rachael, hemorrhoid", is a nagy-purple, rubbery apparent hemorrhoid measuring 1.6 x 1.0 x 0.4 cm. Sectioning reveals a nagy-pink cut surface. The specimen is entirely submitted in A1. ([facility]; 08/14/2018). SHS/SHS . 02 Pathologist provided ICD-10: K64.4 . 02 CPT . 491223 Specimen Comment: A courtesy copy of this report has been sent to Specimen Comment: [phone]. Specimen Comment: Report sent to Performed at: 01 [facility] [address], [place], [place] [id number] MD Kahlil Nicolas MD Phone: [phone] Performed at: 02 [facility] [address] [place], [place] [id number] MD Kieran Chu MD Phone: [phone]
== END 2018-08-14 11:06 | disposition home or self-care (01) ==
LOC: SURG 07:30
PROVIDERS: ATTEND Specialist
DX: K64.4 Residual hemorrhoidal skin tags (principal); Z79.01 Long term (current) use of anticoagulants
CPT/HCPCS: 36415; 46999; 80053; 81025; 85025; 85610; 88304; A7015; J0696; J1100; J1885; J2001; J2250; J2405; J2704; J3010; J3490; A4461

== ENCOUNTER → 2019-03-21 | Outpatient (CLI) | payer OTHER ==
[~2019-03-21] MED LIST changes: -HYDROmorphone 2 MG/ML VIAL IV PRN; -IV RINGERS,LACTATED 1000ML 1,000 ML IV SCH; -MORPHINE SULFATE 2 MG/ML VIAL. IV PRN; -ONDANSETRON PF 4 MG/2 ML VIAL. IV PRN; -PROCHLORPERAZINE 10 MG/2 ML VIAL. IV PRN; -fentaNYL PF VIAL 100 MCG/2 ML VIAL IV PRN
== END | disposition home or self-care (01) ==
LOC: LAB 16:09
PROVIDERS: ATTEND Obstetrics & Gynecology
DX: O09.90 Supervision of high risk pregnancy, unspecified, unspecified trimester (principal)
CPT/HCPCS: 36415

== ENCOUNTER → 2019-07-02 | Outpatient (CLI) | payer OTHER ==
[2019-07-02 11:19] LABS: BASO % 0 % (0-3); EOS # 0.1 x10^3/uL (0.0-0.7); EOS % 1 % (0-3); HEMATOCRIT 32.9 % (36.0-47.0); HEMOGLOBIN 11.4 g/dL (12.0-15.5); LYMPH % 19 % (24-48); MEAN CORPUSCULAR HEMOGLOBIN 33 pg (25-35); MEAN CORPUSCULAR HGB CONC 35 g/dL (31-37); MEAN CORPUSCULAR VOLUME 95 fL (79-100); MONO # 0.8 x10^3/uL (0.0-1.1); MONO % 8 % (0-9); NEUT # 7.5 x10^3/uL (1.8-7.7); NEUT % 71 % (31-73); PLATELET COUNT 225 x10^3/uL (140-400); RED BLOOD COUNT 3.49 x10^6/uL (3.50-5.40); RED CELL DISTRIBUTION WIDTH 13.2 % (11.5-14.5); WHITE BLOOD COUNT 10.5 x10^3/uL (4.0-11.0)
== END | disposition home or self-care (01) ==
LOC: LAB 10:01
PROVIDERS: ATTEND Obstetrics & Gynecology
DX: O09.90 Supervision of high risk pregnancy, unspecified, unspecified trimester (principal)
CPT/HCPCS: 36415; 82950; 85025

== ENCOUNTER → 2019-07-10 | Outpatient (CLI) | payer OTHER | END | disposition home or self-care (01) | LOC: LAB 11:47 | PROVIDERS: ATTEND Obstetrics & Gynecology | DX: O09.90 Supervision of high risk pregnancy, unspecified, unspecified trimester (principal) | CPT/HCPCS: 36415; 82947; 82950 ==

== ENCOUNTER → 2019-07-10 | Outpatient (CLI) | payer OTHER ==
[~2019-07-10] MED LIST changes: +IBUP-1027 PO
--- NOTE | 2019-07-10 16:54 | RAD ---
Biophysical profile 07/10/2019 Clinical History: Twin . Technique: A real-time ultrasound examination of the gravid uterus was performed over a 30 minute period of observation by the instructional technologist. The following parameters were scored at 2 point scale: respiration, tone, breathing and quantitative amniotic fluid volume. Multiple images were obtained. Findings: There is a living twin . Fetus A is in a breech position. The placenta is predominantly posterior but extends anteriorly as well.. Amniotic fluid volume is within normal limits. heart rate is 141 bpm. The JUSTYN measures 18.4. respiration, movement, tone and qualitative amniotic fluid volume score 2 out of 2 points for an 8 out of 8 biophysical profile. Fetus B is in a transverse position with its head to the maternal right. The placenta is nominally posterior but extends anteriorly as well. Amniotic fluid volume is within normal limits. The JUSTYN measures 18.4 cm. The heart rate is 149 beats per minute. respiration, movement, tone and qualitative amniotic fluid volume score 2 out of 2 points for an 8 out of 8 biophysical profile. Impression: 8 out of 8 biophysical profile for both twins pregnancies. Electronically signed by: Ayush Weinberg MD (07/10/2019 4:51 PM) [id number]
== END | disposition home or self-care (01) ==
LOC: OPLND 15:05 → 3 SO LND 15:05 → UNDOADMOB 15:05 → UNDODISOB 16:49 → EDSTATUS 08-01 09:48
PROVIDERS: ATTEND Obstetrics & Gynecology
DX: O30.009 Twin pregnancy, unspecified number of placenta and unspecified number of amniotic sacs, unspecified trimester (principal); Z3A.00 Weeks of gestation of pregnancy not specified
CPT/HCPCS: 76819; G0378; G0379

== ENCOUNTER 2019-07-17 10:10 | Observation (INO) | payer OTHER ==
[~2019-07-17 10:10] MED LIST changes: -IBUP-1027 PO
[2019-07-17] MEDS ORDERED: IV RINGERS,LACTATED 1000ML 1,000 ML IV SCH (10:58)
--- NOTE | 2019-07-17 13:31 | RAD ---
Biophysical profile Clinical Indication: Twins, biophysical profile. Technique: Multiple grayscale images of the pelvis are obtained. Findings: A twin intrauterine is present. Twin A presentation is breech, maternal left. Twin B presentation is breech, maternal right. Twin A: breathing movements: 2 out of 2. motion: 2 out of 2. tone: 2 out of 2. Amniotic fluid volume: 2 out of 2. Therefore, the biophysical profile score is 8 out of 8. JUSTYN using the 4 quadrant method is 10.1 cm. heart rate is 140 beats per minute. Twin B: breathing movements: 2 out of 2. motion: 2 out of 2. tone: 2 out of 2. Amniotic fluid volume: 2 out of 2. Therefore, the biophysical profile score is 8 out of 8. JUSTYN using the 4 quadrant method is 10.1 cm. heart rate is 160 beats per minute. Impression: 1. Twin A biophysical profile score is 8 out of 8. 2. Twin B biophysical profile score is 8 out of 8. Electronically signed by: Bucky Damon MD (07/17/2019 1:28 PM) [id number]
== END 2019-07-17 13:00 | disposition home or self-care (01) ==
LOC: 3 SO LND 10:10
PROVIDERS: ADMIT Obstetrics & Gynecology; ATTEND Obstetrics & Gynecology
DX: O30.003 Twin pregnancy, unspecified number of placenta and unspecified number of amniotic sacs, third trimester (principal); Z3A.30 30 weeks gestation of pregnancy
CPT/HCPCS: 76819; G0378; G0379; 59025

== ENCOUNTER 2019-07-26 11:29 | Observation (INO) | payer OTHER ==
--- NOTE | 2019-07-26 12:53 | RAD ---
INDICATION: Twin COMPARISON: None. TECHNIQUE: Focused ultrasound was performed of the uterus in order to obtain a biophysical profile. Please note that this is not a complete anatomic survey. FINDINGS: Breathin Gross Body Movement: 2 Tone: 2 Amniotic Fluid Volume 2. heartbeat is 133 and 145. Amniotic fluid index is 19 cm. Membrane is seen. IMPRESSION: biophysical profile score is 8 out of 8 for both twins. Electronically signed by: Gutierrez Luna MD (07/26/2019 12:51 PM) [id number]
== END 2019-07-26 12:30 | disposition home or self-care (01) ==
LOC: 3 SO LND 11:29
PROVIDERS: ADMIT Obstetrics & Gynecology; ATTEND Obstetrics & Gynecology
DX: O30.003 Twin pregnancy, unspecified number of placenta and unspecified number of amniotic sacs, third trimester (principal); Z3A.31 31 weeks gestation of pregnancy
CPT/HCPCS: 76819; G0378; G0379; 59025

== ENCOUNTER 2019-08-07 10:09 | Observation (INO) | payer OTHER ==
[2019-08-07] MEDS ORDERED: IV RINGERS,LACTATED 1000ML 1,000 ML IV SCH (10:18)
--- NOTE | 2019-08-07 15:29 | RAD ---
Exam: Ultrasound biophysical profile Indication: Twin Technique: Real-time grayscale and color Doppler images of the pelvis were obtained by the department senior qualitative researcher. Comparisons: 07/26/2019 FINDINGS: Live twin is again noted. heart rate of fetus A is 143 bpm. heart rate of fetus B is 158 bpm. Breathin motion: 2 Tone: 2 Amniotic Fluid Volume 2. JUSTYN measured at 17.6 cm. IMPRESSION: biophysical profile score of 8 out of 8 for both twins. Electronically signed by: Jaimie Siddiqi MD (08/07/2019 3:27 PM) [id number]
== END 2019-08-07 11:52 | disposition home or self-care (01) ==
LOC: 3 SO LND 10:09
PROVIDERS: ADMIT Obstetrics & Gynecology; ATTEND Obstetrics & Gynecology
DX: Z34.90 Encounter for supervision of normal pregnancy, unspecified, unspecified trimester (principal); Z3A.33 33 weeks gestation of pregnancy
CPT/HCPCS: 76819; G0378; G0379; 59025

== ENCOUNTER 2019-08-09 02:07 | Inpatient (IN) | payer OTHER ==
[~2019-08-09] VITALS: Ht 167.6 cm; Wt 73.5 kg
[2019-08-09] MEDS ORDERED: ONDANSETRON PF 4 MG/2 ML VIAL. IVP PRN ×2 (02:15→03:00)
[2019-08-09] MEDS ORDERED: ACETAMINOPHEN 325 MG TABLET. PO PRN ×3 (02:15→09:00)
[2019-08-09] MEDS ORDERED: IV RINGERS,LACTATED 1000ML 1,000 ML IV PRN (02:15)
[2019-08-09 02:38] LABS: BILIRUBIN,URINE NEGATIVE (NEG); CLARITY,URINE CLEAR; COLOR,URINE YELLOW; NITRITE,URINE NEGATIVE (NEG); PH,URINE 6.5 (<5.0-8.0); PROTEIN,URINE NEGATIVE (NEG-TRACE)
[2019-08-09 02:40] LABS: AMNIO PT POSITIVE
[2019-08-09] MEDS: BETAMET ACET&NA PHOS 30 MG/5 ML VIAL. IM SCH (02:48)
[2019-08-09 02:52] LABS: SQUAMOUS EPITHELIAL CELL,UR MOD /LPF
[2019-08-09 02:53] LABS: BACTERIA,URINE 0 /HPF (0-FEW); RBC,URINE OCC /HPF (0-2)
[2019-08-09] MEDS ORDERED: TERBUTALINE 1 MG/ML VIAL. SQ PRN (03:00)
[2019-08-09] MEDS ORDERED: OXYTOCIN 30 UNIT/500 ML PREMIX 500 ML IV PRN ×3 (03:00→09:00)
[2019-08-09] MEDS ORDERED: IBUPROFEN 400 MG TABLET. PO PRN (03:00)
[2019-08-09] MEDS ORDERED: LIDOCAINE 1% PF 30 ML VIAL. INJ PRN (03:00)
[2019-08-09] MEDS ORDERED: fentaNYL PF VIAL 100 MCG/2 ML VIAL ONE (03:00)
[2019-08-09] MEDS ORDERED: 0.9 % SODIUM CHLORIDE 10 ML DISP.SYRIN. IV PRN ×2 (03:00→09:00)
[2019-08-09 03:06] LABS: BASO % 0 % (0-3); EOS # 0.1 x10^3/uL (0.0-0.7); EOS % 1 % (0-3); HEMATOCRIT 31.9 % (36.0-47.0); HEMOGLOBIN 11.2 g/dL (12.0-15.5); LYMPH # 2.5 x10^3/uL (1.0-4.8); LYMPH % 18 % (24-48); MEAN CORPUSCULAR HEMOGLOBIN 33 pg (25-35); MEAN CORPUSCULAR HGB CONC 35 g/dL (31-37); MEAN CORPUSCULAR VOLUME 92 fL (79-100); MONO # 1.5 x10^3/uL (0.0-1.1); MONO % 11 % (0-9); NEUT # 9.8 x10^3/uL (1.8-7.7); NEUT % 70 % (31-73); PLATELET COUNT 179 x10^3/uL (140-400); RED BLOOD COUNT 3.46 x10^6/uL (3.50-5.40); RED CELL DISTRIBUTION WIDTH 13.7 % (11.5-14.5)
--- NOTE | 2019-08-09 03:17 | RAD ---
CLINICAL HISTORY: twins at 33 weeks, laboring COMPARISON: None available. TECHNIQUE: Limited transabdominal ultrasound of the uterus was performed. FINDINGS/ IMPRESSION: Twin gestation, Baby A in vertex position, heart rate is 158 bpm and Baby B in vertex position, heart rate is 136 bpm. Electronically signed by: Ezio Verdugo MD (08/09/2019 3:14 AM) JONO
[2019-08-09] MEDS ORDERED: IV RINGERS,LACTATED 1000ML 1,000 ML IV SCH (03:18)
[2019-08-09 03:25] VITALS: BP 123/78
[2019-08-09] MEDS ORDERED: NALOXONE 0.4 MG/ML VIAL. IV PRN (03:30)
[2019-08-09] MEDS ORDERED: PENICILLIN G K 5,000,000 UNIT in IV DEXTROSE 5% 100ML 100 ML IV ONE (03:30)
[2019-08-09] MEDS ORDERED: L&D EPIDURAL SYRINGE 50 ML EPID PRN (03:30)
[2019-08-09] MEDS ORDERED: L&D EPIDURAL 50 ML SYRINGE. ONE (03:30)
[2019-08-09] MEDS ORDERED: ROPIVacaine 0.2% PF 10 ML VIAL. EPID PRN (03:30)
[2019-08-09] MEDS: IV RINGERS,LACTATED 1000ML 1,000 ML IV SCH ×3 (05:12→18:55)
[2019-08-09] MEDS: PENICILLIN G K 2,500,000 UNIT in IV DEXTROSE 5% 50 ML IV SCH ×3 (07:18→16:00)
--- NOTE | 2019-08-09 07:41 | PDOC1 ---
OB - History Hx of Present Care: Good Care Ultrasounds: Normal mid trimester US Obstetrical Complications: None Medical Complications: None Past Family/Social History * Past Medical, Surgical, Family and Obstetric Histories reviewed from chart. Rubella: Immune RPR/VDRL: Negative GBS Status: Unknown HBsAG: Negative OB - Chief Complaint & HPI Date of Admission: Date of Admission: Aug 09, 2019 at 02:07 Chief Complaint/History : 2 Para: 1 EGA: 34 Reason for admission: labor, rupture of membranes Admission Nurse Assessment Rev: Yes OB - Admission Exam Physical Exam Vitals: VS - Last 72 Hours, by Label Date Time Temp Pulse Resp B/P (MAP) Pulse Ox O2 Delivery O2 Flow Rate FiO2 08/09/19 06:49 18 08/09/19 03:25 98.9 78 22 123/78 (93) Room Air 98.9 HEENT: Normal Heart: Regular Rate Lungs: Clear Abdomen: Gravid, Non tender, Soft Extremities: Edema Reflexes: Normal Cervical Dilatation: 4cm Effacement: 50% Station: -3 Membranes: Ruptured Amniotic Fluid: Clear Heart Rate: Normal Accelerations: Accelerations Present Decelerations: No decelerations Contractions on Admission: < 5 Minutes Apart Intensity: Moderate Text A: 34 wks IUP PPROM Twin gestation P: Admit for labor management. Start Pen G prophylaxis. Give betamethasone for lung maturity. ALTAGRACIA FERRER Jr, MD Aug 09, 2019 07:41
[2019-08-09] MEDS ORDERED: miSOPROStol 200 MCG TABLET ONE (07:51)
[2019-08-09] MEDS ORDERED: ceFAZolin 2GM PREMIX 2 GM/50 ML BAG IV ONE (08:00)
[2019-08-09] MEDS ORDERED: EPINEPHrine SYRINGE 1 MG/10 ML SYRINGE ONE (08:06)
[2019-08-09] MEDS ORDERED: SODIUM BICARB ADULT 8.4% 50 MEQ/50 ML DISP.SYRIN. ONE (08:06)
[2019-08-09] MEDS ORDERED: LIDOCAINE 2% PF 5 ML VIAL. ONE (08:06)
[2019-08-09] MEDS ORDERED: OXYTOCIN PREMIX 30 UNIT/500 ML NS BAG. IV ONE (08:30)
[2019-08-09] MEDS ORDERED: miSOPROStol 200 MCG TABLET PR ONE (08:48)
--- NOTE | 2019-08-09 08:57 | PDOC ---
VAGINAL DELIVERY DATE DATE: 08/09/19 TIME: 08:55 : 2 Para: 2 (twins) EGA: 34 VAGINAL DELIVERY: VTX (x2) VACCUM ASSISTED: No PLACENTA: Spontaneous Twin A Twin B SEX: Male (x2) WEIGHT Weight [ pending for both] Nuchal Cord: No Amniotic Fluid: Clear PAIN: Epidural EPISIOTOMY: No EXTENSION: No EBL 500 ml COMPLICATIONS none CONDITION pt. stable ADDITIONAL NOTES Twin A placenta delivered spontaneously. Twin B placent manual delivery. Provided cytotec 800 mcg rectally. Signs of Intrauterine Infectio: None Shoulder Dystocia: No ALTAGRACIA FERRER Jr, MD Aug 09, 2019 08:57
[2019-08-09] MEDS ORDERED: TDaP (Adacel) per PROTOCOL. MC PRN (09:00)
[2019-08-09] MEDS: MULTIVITAMIN with MINERAL TABLET. PO SCH (09:00)
[2019-08-09] MEDS ORDERED: ZOLPIDEM 5 MG TABLET. PO PRN (09:00)
[2019-08-09] MEDS ORDERED: MMR per PROTOCOL. MC PRN (09:00)
[2019-08-09] MEDS ORDERED: MAGNESIUM HYDROXIDE 2,400 MG/30 ML ORAL.SUSP. PO PRN (09:00)
[2019-08-09] MEDS ORDERED: diphenhydrAMINE HCL 25 MG CAPSULE PO PRN (09:00)
[2019-08-09] MEDS ORDERED: BENZOCAINE 20% TOPICAL AEROSOL SPRAY 57GM CAN. TP PRN (09:00)
[2019-08-09] MEDS ORDERED: SIMETHICONE 80 MG TAB.CHEW PO PRN (09:00)
[2019-08-09] MEDS ORDERED: oxyCODONE/APAP 5/325 1 TAB TABLET PO PRN (09:00)
[2019-08-09] MEDS ORDERED: PHENYLEPH/MINERAL OIL/PETROLAT RECTAL OINTMENT TUBE. RC PRN (09:00)
[2019-08-09] MEDS ORDERED: HYDROCORTISONE 1% TOPICAL OINTMENT 30GM TUBE. TP PRN (09:00)
[2019-08-09] MEDS ORDERED: MAG HYDROX/ALUMINUM HYD/SIMETH 30 ML ORAL.SUSP PO PRN (09:00)
[2019-08-09] MEDS ORDERED: METHYLERGONOVINE MALEATE 0.2 MG/ML VIAL. IM STA (09:50)
[2019-08-09] MEDS ORDERED: METHYLERGONOVINE MALEATE 0.2 MG/ML VIAL. IM ONE ×2 (09:52→10:00)
[2019-08-09 12:30] VITALS: BP 108/72
[2019-08-09 13:03] VITALS: BP 104/58
[2019-08-09 17:00] VITALS: BP 104/58
[2019-08-09 17:26] LABS: FETAL BLEED VOL > 75 mL
[2019-08-09 23:00] VITALS: BP 112/69
[2019-08-09] MEDS: DOCUSATE SODIUM 100 MG CAPSULE. PO PRN (23:17)
[2019-08-09] MEDS: IBUPROFEN 400 MG TABLET. PO PRN (23:18)
[2019-08-10] MEDS: IV RINGERS,LACTATED 1000ML 1,000 ML IV SCH (02:55)
[2019-08-10] MEDS: BETAMET ACET&NA PHOS 30 MG/5 ML VIAL. IM SCH (03:00)
[2019-08-10 05:30] VITALS: BP 102/71
[2019-08-10 06:13] LABS: BASO % 0 % (0-3); EOS % 0 % (0-3); HEMATOCRIT 26.9 % (36.0-47.0); HEMOGLOBIN 9.3 g/dL (12.0-15.5); LYMPH # 2.9 x10^3/uL (1.0-4.8); LYMPH % 22 % (24-48); MEAN CORPUSCULAR HEMOGLOBIN 32 pg (25-35); MEAN CORPUSCULAR HGB CONC 35 g/dL (31-37); MEAN CORPUSCULAR VOLUME 94 fL (79-100); MONO # 1.3 x10^3/uL (0.0-1.1); MONO % 10 % (0-9); NEUT # 9.1 x10^3/uL (1.8-7.7); NEUT % 68 % (31-73); PLATELET COUNT 168 x10^3/uL (140-400); RED BLOOD COUNT 2.88 x10^6/uL (3.50-5.40); RED CELL DISTRIBUTION WIDTH 14.2 % (11.5-14.5); WHITE BLOOD COUNT 13.4 x10^3/uL (4.0-11.0)
[2019-08-10] MEDS ORDERED: FERROUS SULFATE 325 MG TABLET. PO SCH (08:00)
[2019-08-10] MEDS: MULTIVITAMIN with MINERAL TABLET. PO SCH (08:52)
[2019-08-10] MEDS: DOCUSATE SODIUM 100 MG CAPSULE. PO PRN (08:52)
[2019-08-10] MEDS: IBUPROFEN 400 MG TABLET. PO PRN (08:53)
--- NOTE | 2019-08-10 09:23 | PDOC3 ---
OB DISCHARGE SUMMARY DATE OF ADMISSION: 08/09/19 DATE OF DISCHARGE: 08/10/19 REASON FOR ADMISSION: Onset of labor, labor, PPROM INTRAPARTUM PROCEDURES: Spontanous Vag Deliv (twins) DISCHARGE DIAGNOSIS: Others ( delivery twins) DISCHARGE INFORMATION: Activity (ad liat), Diet (regular), Instructions (pelvic rest x 6 wks) HOSPITAL COURSE labor with PPROM delivered twins vaginally without complications. ALTAGRACIA FERRER Jr, MD Aug 10, 2019 09:23
[2019-08-10] MEDS ORDERED: IBUP-1027 PO (09:25)
--- NOTE | 2019-08-10 09:25 | DISCH ---
DISCHARGE INSTRUCTIONS Condition on Discharge Condition on Discharge: Stable Activity After Discharge Activity Instructions for Disc: Activity as tolerated Lifting Instructions after Dis: No heavy lifting Driving Instructions after Dis: Do not drive today Diet after Discharge Diet after Discharge: Regular Contacting the DRMaria after DC Call your doctor for: Concerns you may have Follow-Up Follow up with: Dr. Villarreal in 6 wks. ALTAGRACIA VILLARREAL Jr, MD Aug 10, 2019 09:25
[2019-08-10 11:30] VITALS: BP 124/78
--- NOTE | 2019-08-10 11:45 | NUR ---
Discharge and follow up instructions given to pt along with a Rx for ibuprofen. Pt denied any questions or complaints at time of D/C. Pt taken out of the hospital per wheelchair by Jeanette WHEELER.
--- NOTE | 2019-08-12 16:06 | PATHOLOGY ---
[facility] Accession Number: [id number] . 01 Material submitted: . PART A: placenta - PLACENTA TWIN A PART B: placenta - PLACENTA TWIN B . 01 Clinical history: . 33.6 wk intrauterine , twin delivery. Note: Placentas are received in separate containers. . 02 Diagnosis: A. 248-gram placenta of an estimated 33 6/7 weeks gestation with attached membranes and umbilical cord and separate segment of umbilical cord, twin A: - Eccentric/marginal insertion of umbilical cord. - Villous edema, patchy. - Focal mild acute subchorionitis and overlying early acute chorioamnionitis, and focal slight acute vasculitis of chorionic plate. . B. 575-gram fragmented placenta of an estimated 33 6/7 weeks gestation with attached membranes and umbilical cord, twin B: - Velamentous insertion of umbilical cord. - Focal slight villous edema. Q 08/12/2019 1505 Local . 02 Comment: As this specimen was received in two separate containers, the assumption would be that this is a dichorionic diamniotic twin placenta. Sections of the membranes from each of the placental discs show no evidence of an acute chorioamnionitis. (JPM/db; 08/12/2019) . 02 Electronically signed: . Kieran Chu MD, Pathologist NPI- [id number] . 01 Gross description: . A. Received in formalin labeled "Rachael Duran, placenta baby A" is a placenta with attached membranes and umbilical cord. The placental disc measures 18.2 x 10.0 x 2.8 cm. The membranes are transparent and thin with the site of membrane rupture 9.5 cm from the placental disc. The membranes have marginal insertion. The umbilical cord measures 41.2 cm in length, 1.5 cm in diameter, contains three vessels and inserts marginally, 0.8 cm from the closest placental margin. There are no true knots in the umbilical cord. A separate segment of umbilical cord is present within the container measuring 5.9 cm in length and 1.8 cm in diameter. The trimmed placental weight is 248 grams. The surface is blue-weeks with minimal subchorionic fibrin. Amnion nodosum is not present. Cysts are not present. The maternal surface has intact cotyledons and no basal hemorrhage. One of the cotyledons displays a ragged area, measuring 3.7 x 2.5 cm (inked black). Sectioning through the placental disc reveals pale nagy cut surfaces without calcifications or infarcts. Chicken [employer]er sections are submitted as follows: . A1 proximal and distal umbilical cord A2 membranes, rolled A3 human resources representative peripheral placenta A4 human resources representative central placenta A5 additional maternal surface with ragged cotyledon A6 surface adjacent to umbilical cord insertion site . B. Received in formalin labeled "Rachael Duran, placenta baby B" is a fragmented placenta (received in two pieces) with attached membranes and umbilical cord. The placental disc measures in aggregate 20.0 x 15.2 x 5.5 cm. The membranes are transparent and thin with the site of membrane rupture is unable to be determined due to the fragmented nature of the specimen. The attached areas of membranes have marginal insertion. A possible T-zone is identified on the placental membranes. The umbilical cord measures 40.0 cm in length, 1.5 cm in diameter and contains three vessels. The umbilical cord runs through the membranes, consistent with velamentous insertion, but cannot be definitively determined due to the fragmented nature of the specimen ( membranes are partially stripped from the placental disc). The umbilical cord insertion is located 10.3 cm from the margin of the placental disc. There are no true knots in the umbilical cord. The trimmed placental weight is 575 grams. The surface is blue-weeks with minimal subchorionic fibrin. Amnion nodosum is not present. Cysts are not present. The cotyledons are not intact due to the fragmented nature of the specimen. Sectioning through the placental disc reveals pale nagy cut surfaces and focal possible calcifications. No infarcts are identified. [employer]er sections are submitted as follows: . B1 proximal and distal umbilical cord B2 membranes, rolled B3 human resources representative peripheral placenta B4 human resources representative central placenta B5 additional maternal surface B6 surface with large vessels B7 possible T-zone ([facility]; 08/11/2019) SYC/SYC 08/11/2019 1106 Local . 02 Pathologist provided ICD-10: O41.1230, Z3A.33 . 02 CPT . 771808, 439441 Specimen Comment: A courtesy copy of this report has been sent to [phone] Specimen Comment: Report sent to Performed at: 01 [facility] [address], [place] [id number] MD Kahlil Nicolas MD Phone: [phone] Performed at: 02 [facility] [address] [place], [place] [id number] MD Kieran hCu MD Phone: [phone]
== END 2019-08-10 11:45 | disposition home or self-care (01) | DRG 805 ==
LOC: 3 SO LND 02:07 → OBSVTOIN 02:07 → 3 SO LND 17:47
PROVIDERS: ADMIT Obstetrics & Gynecology; ATTEND Obstetrics & Gynecology
PROC: 10E0XZZ Delivery of Products of Conception, External Approach (ICD-10-PCS; principal; 2019-08-09)
PROC: 3E033VJ Introduction of Other Hormone into Peripheral Vein, Percutaneous Approach (ICD-10-PCS; 2019-08-09)
PROC: 00HU33Z Insertion of Infusion Device into Spinal Canal, Percutaneous Approach (ICD-10-PCS; 2019-08-09)
PROC: 3E0R3BZ Introduction of Anesthetic Agent into Spinal Canal, Percutaneous Approach (ICD-10-PCS; 2019-08-09)
DX: O30.003 Twin pregnancy, unspecified number of placenta and unspecified number of amniotic sacs, third trimester (principal); O60.14X0 Preterm labor third trimester with preterm delivery third trimester, not applicable or unspecified; Z37.2 Twins, both liveborn; O42.913 Preterm premature rupture of membranes, unspecified as to length of time between rupture and onset of labor, third trimester; Z3A.34 34 weeks gestation of pregnancy; Z20.828 Contact with and (suspected) exposure to other viral communicable diseases
CPT/HCPCS: 36415; 76815; 81001; 84112; 85025; 85460; 86592; 86850; 86900; 86901; 87086; 87653; J0171; J0696; J0702; J2210; J2540; J2590; J2795; J3010; J3490; J7060; J7120; G0378; U0003